=== PATIENT | female | born 2000 | race Caucasian/White ===

== ENCOUNTER 2021-10-07 07:37 | Emergency (ER) | payer OTHER, SELFPAY ==
[2021-10-07 07:39] VITALS: BP 120/80; PULSE 96; RESP 16; TEMP 35.9; O2SAT 100; BMI 22.6
[2021-10-07 07:41] VITALS: BP 120/80; PULSE 96; RESP 16; TEMP 35.9; O2SAT 100
--- NOTE | 2021-10-07 08:01 | EDS_ITS ---
HPI History of Present Illness Chief Complaint: Fever Narrative Narrative: 21-year-old female who denies significant past medical history presents with fever and cough that she has had for the last 10 days. She states that she was [facility] at [facility] after she had had influenza around Thanks time. She was feeling improved, however she developed another fever and cough. She states that the [facility] through telemedicine had written her prescription for an antitussive and an antibiotic to hold till Wednesday because she may have a secondary bacterial infection after influenza. When she went to [employer] the prescriptions, the orders had been canceled. She denies any shortness of breath. No dysuria, no other symptoms. Quite frankly, she comes to the emergency department wanting a prescription for an antitussive and an antibiotic. PFSH PFSH Medical History no medical history Home Medications albuterol sulfate [Ventolin HFA] 1 - 2 puff INHALATION Q4H PRN PRN #1 ea 10/07/21 [Rx Last Taken Unknown] azithromycin [Zithromax Z-Lion] See Rx Instructions PO .COMPLEX #6 tab 10/07/21 [Rx Last Taken Unknown] benzonatate 200 mg PO TID PRN PRN #20 cap 10/07/21 [Rx Last Taken Unknown] norgestimate-ethinyl estradiol [Sprintec (28)] 1 tab PO DAILY 10/07/21 [History Last Taken Unknown] Allergy/AdvReac Type Severity Reaction Status Date / Time No Known Allergies Allergy Verified 10/07/21 07:38 Social History Smoking Status: Never smoker ROS ROS ED ROS Narrative Constitutional: Positive fever, no chills. HEENT: No sore throat. No neck pain. No loss of vision. Positive rhinorrhea. Nasal congestion. Cardiovascular: No chest pain. No palpitations. No pedal edema. Respiratory: Positive cough, no shortness of breath. Abdominal: No abdominal pain. No nausea. No vomiting. Genitourinary: No dysuria. No hematuria. Musculoskeletal: No myalgias. No arthralgias. Neurologic: No headaches. No dizziness. No lightheadedness. Skin: No rash. No change in color. Psychiatric: No depression. No anxiety. EXAM Physical Exam Narrative Exam Narrative: Afebrile. Vital signs noted. Nontoxic-appearing. HEENT: Normocephalic. Atraumatic. PERRL, EOMI. Neck soft and supple. No point tenderness or step off. Noted nasal congestion. Cardiovascular: Regular rate and rhythm. No murmurs, rubs, or gallops appreciated. Respiratory: No tachypnea. Lungs clear to auscultation bilaterally. No wheezing. Gastrointestinal: Abdomen soft, nontender, with normoactive bowel sounds. No rebound or guarding. Neurological: Awake. Alert. Nonfocal, nonlateralizing. Skin: No rash. Normal color. No pallor. Musculoskeletal: No pedal edema. Full range of motion extremities. Const Vital Signs: 10/07/21 07:39 10/07/21 07:41 10/07/21 07:46 Temperature 96.7 F L 96.7 F L Temperature Source Temporal Temporal Pulse Rate 96 96 Respiratory Rate 16 16 Respiratory Effort Normal Blood Pressure 120/80 120/80 Blood Pressure Mean 93 93 Pulse Ox 100 100 Oxygen Delivery Method Room Air Room Air MDM MDM MDM Narrative Medical decision making narrative: Pulse ox is 100% on room air without evidence of hypoxia. I had discussed the chest x-ray with the patient, however, it is a radiation exposure that I do not feel that she would need because treatment will be the same. I will write her for an azithromycin Z-Lion that she should hold until Wednesday as planned. She was also given a prescription for an albuterol inhaler and Tessalon. She states that she was tested for Covid on Wednesday, 4 days ago, and it was negative. At this point in time, I feel she be discharged safely home with follow-up. Return instructions to the emergency department were reviewed. Disposition is discharged home in stable condition. Discharge Plan Triage Chief Complaint: Fever ED Provider: Jaswinder Hernandez Dx/Rx/DC Orders Clinical Impression: Cough, URI (upper respiratory infection) Instructions: ED Upper Resp Infec Abx Tx Prescriptions: New albuterol sulfate [Ventolin HFA] 90 mcg/actuation HFA aerosol inhaler 1 - 2 puff inhalation Q4H PRN PRN (Reason: Wheezing) Qty: 1 RF: 0 azithromycin [Zithromax Z-Lion] 250 mg tablet See Rx Instructions PO .COMPLEX Qty: 6 RF: 0 benzonatate 100 mg capsule 200 mg PO TID PRN PRN (Reason: Cough) Qty: 20 RF: 0 No Action norgestimate-ethinyl estradiol [Sprintec (28)] 0.25-35 mg-mcg Tablet 1 tab PO DAILY RF: 0 Primary Care Provider: NOT,DEFINED Referrals: Sharonda Owen DO [STAFF PHYSICIAN] - 10/14/21 NOT,DEFINED [Primary Care Provider] - Disposition Disposition: Home, Self Care
== END 2021-10-07 09:18 | disposition home or self-care (01) ==
LOC: ED 08:37
PROVIDERS: Emergency Provider Emergency Medicine; PCP Pediatrics
DX: J06.9 Acute upper respiratory infection, unspecified (principal); Z79.899 Other long term (current) drug therapy
CPT/HCPCS: 99282

== ENCOUNTER 2022-07-18 10:51 | Emergency (ER) | payer OTHER, SELFPAY ==
[2022-07-18 10:52] VITALS: BP 148/98; PULSE 112; RESP 16; TEMP 36.6; O2SAT 99; BMI 22.6
--- NOTE | 2022-07-18 11:23 | CT_ITS ---
STUDY: CTA HEAD AND NECK WITH CONTRAST REASON FOR EXAM: Female, 21 years old. anis[facility]oria RADIATION DOSAGE (If Supplied By Facility): CTDIvol = ( 27.54 ) mGy, DLP = ( 1396.20 ) mGycm TECHNIQUE: CT angiography was performed with a multi-detector CT scanner. Data acquisition was obtained from the skull base through the vertex following intravenous administration of IV 100mL Isovue-370. MIP images were reconstructed from the axial data set. Post-processing of the angiographic images was performed, with multiplanar reformation and 3D reconstruction. Individualized dose optimization techniques were used for this CT. COMPARISON: No relevant priors. FINDINGS: Normal bilateral petrous carotid arteries. Normal right cavernous carotid artery with a normal supraclinoid bifurcation. Normal left cavernous carotid artery with a normal supraclinoid bifurcation. Normal right A1 segments of the anterior cerebral artery. Normal left A1 segments of the anterior cerebral artery. Normal intact anterior communicating artery (ACOM). Normal bilateral A2 segments of the anterior cerebral arteries. Normal right M1 and M2 segments of the middle cerebral arteries, with a normal M1 bifurcation. Normal left M1 and M2 segments of the middle cerebral arteries, with a normal M1 bifurcation. Normal right posterior communicating artery (PCOM). Normal left posterior communicating artery (PCOM). Normal bilateral vertebral arteries. Normal basilar artery with a normal basilar bifurcation. The visualized bilateral superior cerebellar (SCA) arteries are normal. Normal bilateral P1, P2 and visualized P3 segments of the posterior cerebral arteries. There is no demonstrated aneurysm of the [place]. There is no demonstrated abnormality of the visualized brain. AORTIC ARCH: Normal visualized aortic arch. Normal origins of the brachiocephalic, left common carotid, and left subclavian arteries. RIGHT CAROTID ARTERIES: Normal right common carotid artery (CCA). Normal right common carotid bulb. Normal origin of the right internal carotid (ICA) artery without a hemodynamically significant stenosis. Normal visualized cervical portion of the right internal carotid artery. Normal origin of the right external carotid artery (ECA). LEFT CAROTID ARTERIES: Normal left common carotid artery (CCA). Normal left common carotid bulb. Normal origin of the left internal carotid (ICA) artery without a hemodynamically significant stenosis. Normal visualized cervical portion of the left internal carotid artery. Normal origin of the left external carotid artery (ECA). VERTEBRAL ARTERIES: Normal bilateral vertebral arteries. CT/CTA Head AND Neck W/ Contrast IMPRESSION: 1. Normal [place] without a demonstrated aneurysm or hemodynamically significant stenosis. 2. Normal bilateral cervical carotid and vertebral arteries. Electronically Signed: Roly Coyle MD at 12:42 EDT ,
[2022-07-18 11:51] LABS: Absolute Lymphocyte Count 1.61 X10^3/uL (0.83-4.51); Absolute Neutrophil Count 3.6 X10^3/uL (2.0-7.7); Basophil# 0.02 X10^3/uL; Basophil% 0.4 % (0-1); Eosinophil# 0.01 X10^3/uL; Eosinophils% 0.2 % (0-5); Hematocrit 39.1 % (37-47); Hemoglobin 13.1 g/dL (12.0-15.0); Lymphocyte # 1.61 X10^3/ul (0.83-4.51); Mean Corp Hgb Conc 33.5 g/dL (32-36); Mean Corpuscular Hgb 30.5 pg (27.0-32.0); Mean Corpuscular Volume 90.9 fL (81-99); Mean Platelet Vol. 10.3 fl (6.2-12.0); Monocyte# 0.28 X10^3/uL; NRBC Flagged by Analyzer 0 % (0-5); Neutrophil # 3.63 X10^3/uL (2.7-7.7); Neutrophil % 65.2 % (47-70); Platelet Count 232 K/mm3 (150-450); RBC Distribution Width CV 12.6 % (11.6-14.6); RBC Distribution Width SD 41.4 fl (35.1-43.9); White Blood Count 5.6 K/mm3 (4.4-11.0)
[2022-07-18 12:00] LABS: Anion Gap 7 (5-15); BUN 13 mg/dL (7-18); BUN/Creat Ratio 12.3 RATIO (10-20); Chloride 110 mmol/L (98-107); Creatinine, Serum 1.06 mg/dL (0.55-1.02); EST Glomerular Filtration Rate 70 mL/min (>60); Est Glom Filt Rate - Afr Amer 84 mL/min (>60); Estimated Creatinine Clearance 79.25 ml/min; Glucose 93 mg/dL (74-106); Sodium Level 142 mmol/L (136-145)
--- NOTE | 2022-07-18 12:56 | EX.ED.VIS.EY ---
HPI History of Present Illness Chief Complaint: Eye Problem Narrative Narrative: 21-year-old female presenting with dilated left pupil. She states it has not been painful. She was well last night and did not notice it. It was noticed this morning when somebody saw her. She does not have any tearing of the eye. No redness in the eye. No visual discrepancies. She states that she noted in the elevator with her friend that her pupils become more equal. When she gets into the light the left one is larger. The patient states that she does not take any medications except for occasionally which has not been used. She is also taking control which has been unchanged. She does not have a headache, dizziness, lightheadedness, nausea. She denies any trauma to the eye or her head. PFSH PFSH Medical History no medical history Home Medications albuterol sulfate 90 mcg/actuation aerosol inhaler (Ventolin HFA) 1 - 2 puff inhalation Q4H PRN PRN Wheezing #1 ea 10/07/21 [Rx Last Taken Unknown] norgestimate 0.25 mg-ethinyl estradiol 35 mcg tablet (Sprintec (28)) 1 tab PO DAILY 10/07/21 [History Last Taken Unknown] Allergy/AdvReac Type Severity Reaction Status Date / Time No Known Allergies Allergy Verified 07/18/22 11:01 Surgical History no surgical history Social History Smoking Status: Never smoker ROS ROS ED Constitutional Constitutional ED: Denies chills or fever(s) Eyes Eyes: Reports other Details: Enlarged left pupil ; Denies change in vision or diplopia ENT ENT ED: Denies rhinorrhea or sore throat Cardiovascular Cardiovascular: Denies chest pain or palpitations Respiratory/Chest Respiratory/Chest: Denies cough or dyspnea Gastrointestinal Gastrointestinal: Denies abdominal pain or constipation Genitourinary Genitourinary ED: Denies dysuria or hematuria Musculoskeletal Musculoskeletal: Denies arthralgias Integumentary Denies abscess or Abrasions Neurologic Neurologic: Denies headache(s) or paresthesias Psychiatric Psychiatric: Denies anxiety EXAM Physical Exam Const Vital Signs: 07/18/22 10:52 Temperature 97.8 F Temperature Source Temporal Pulse Rate 112 H Respiratory Rate 16 Blood Pressure 148/98 H Blood Pressure Mean 114 Pulse Ox 99 Oxygen Delivery Method Room Air Positive well nourished General Appearance ED: NAD HEENT atraumatic Eyes EOMs intact bilaterally, conjunctivae normal, no scleral icterus, no papilledema, normal visual moss by confrontation and fundi normal bilaterally General Eye ED: Negative for exophthalmos or proptosis Visual Acuity: acuity normal Visual Field: No peripheral vision loss and No central vision loss Alignment: alignment normal Periorbital: periorbital findings normal Eyelid: eyelids normal Conjunctiva: conjunctiva normal Sclera: sclera normal Cornea: cornea normal Pupil: pupil size - right, pupil size - left Left Pupil Size: 5 ft and other Other Details: Left pupil 5 mm, right pupil 3 mm. Each pupil reactive to light. Neck no lymphadenopathy Resp normal respiratory effort Cardio regular rate and regular rhythm Neuro oriented x3, CN's II-XII intact bilaterally, moves all extremities and no sensory deficits noted Sensorium / Orientation: alert Motor Exam: strength 5/5 throughout Skin no wounds MDM MDM MDM Narrative Medical decision making narrative: I spoke with Dr. Hickman who is on-call for ophthalmology. He recommended a CTA of the brain to prove that she does not have any posterior circulation aneurysms. CTA of the head and neck was performed and is negative. Patient counseled on findings. He will follow-up with him on an outpatient basis. I did give him her contact information and he was going to try to set this up as an outpatient follow-up. She is given contact information as well. Patient stable for discharge. Impression: 1. An[facility] Lab Data Attestation: I reviewed the patient's lab results. Labs: Laboratory Results - last 24 hr 07/18/22 07/18/22 11:40 11:40 WBC 5.6 RBC 4.30 Hgb 13.1 Hct 39.1 MCV 90.9 MCH 30.5 MCHC 33.5 RDW Std Deviation 41.4 RDW Coeff of [place] 12.6 Plt Count 232 MPV 10.3 Immature Gran % (Auto) 0.200 Neut % (Auto) 65.2 Lymph % (Auto) 29.0 [place] % (Auto) 5.0 Eos % (Auto) 0.2 Baso % (Auto) 0.4 Absolute Neuts (auto) 3.6 Absolute Lymphs (auto) 1.61 Nucleated RBC % 0 Sodium 142 Potassium 4.0 Chloride 110 H Carbon Dioxide 25.0 Anion Gap 7 BUN 13 Creatinine 1.06 H Estim Creat Clear Calc 79.25 Est GFR (MDRD) Af Amer 84 Est GFR (MDRD) Non-Af 70 BUN/Creatinine Ratio 12.3 Glucose 93 Calcium 9.0 Radiography Diagnostic Testing: Clinical Impression(s) from Imaging Studies Head/Neck CTA 07/18/22 11:23 IMPRESSION: 1. Normal [place] without a demonstrated aneurysm or hemodynamically significant stenosis. 2. Normal bilateral cervical carotid and vertebral arteries. Electronically Signed: Roly Coyle MD at 12:42 EDT Reading Location ID and State: [facility] / [place] , Service support , Discharge Plan Triage Chief Complaint: Eye Problem ED Provider: Tomy Samson Dx/Rx/DC Orders Clinical Impression: Anisocoria Prescriptions: No Action norgestimate-ethinyl estradiol [Sprintec (28)] 0.25-35 mg-mcg Tablet 1 tab PO DAILY albuterol sulfate [Ventolin HFA] 90 mcg/actuation HFA aerosol inhaler 1 - 2 puff inhalation Q4H PRN PRN (Reason: Wheezing) Qty: 1 0RF Primary Care Provider: [facility] Doctor,Out of Referrals: Serg Schultz MD [Med Staff - Active Staff] - As soon as possible [facility] Doctor,Out of [Primary Care Provider] - Disposition Disposition: Home, Self Care
--- NOTE | 2022-07-18 13:02 | EX.ED.VIS.EY ---
HPI History of Present Illness Chief Complaint: Eye Problem [facility] Medical History no medical history Home Medications albuterol sulfate 90 mcg/actuation aerosol inhaler (Ventolin HFA) 1 - 2 puff inhalation Q4H PRN PRN Wheezing #1 ea 10/07/21 [Rx Last Taken Unknown] norgestimate 0.25 mg-ethinyl estradiol 35 mcg tablet (Sprintec (28)) 1 tab PO DAILY 10/07/21 [History Last Taken Unknown] Allergy/AdvReac Type Severity Reaction Status Date / Time No Known Allergies Allergy Verified 07/18/22 11:01 Surgical History no surgical history Social History Smoking Status: Never smoker EXAM Physical Exam Const Vital Signs: 07/18/22 10:52 Temperature 97.8 F Temperature Source Temporal Pulse Rate 112 H Respiratory Rate 16 Blood Pressure 148/98 H Blood Pressure Mean 114 Pulse Ox 99 Oxygen Delivery Method Room Air MDM MDM MDM Narrative Medical decision making narrative: Patient seen and evaluated. His rito. I spoke with Dr. Shellie AMADO Lab Data Labs: Laboratory Results - last 24 hr 07/18/22 07/18/22 11:40 11:40 WBC 5.6 RBC 4.30 Hgb 13.1 Hct 39.1 MCV 90.9 MCH 30.5 MCHC 33.5 RDW Std Deviation 41.4 RDW Coeff of [place] 12.6 Plt Count 232 MPV 10.3 Immature Gran % (Auto) 0.200 Neut % (Auto) 65.2 Lymph % (Auto) 29.0 [place] % (Auto) 5.0 Eos % (Auto) 0.2 Baso % (Auto) 0.4 Absolute Neuts (auto) 3.6 Absolute Lymphs (auto) 1.61 Nucleated RBC % 0 Sodium 142 Potassium 4.0 Chloride 110 H Carbon Dioxide 25.0 Anion Gap 7 BUN 13 Creatinine 1.06 H Estim Creat Clear Calc 79.25 Est GFR (MDRD) Af Amer 84 Est GFR (MDRD) Non-Af 70 BUN/Creatinine Ratio 12.3 Glucose 93 Calcium 9.0 Radiography Diagnostic Testing: Clinical Impression(s) from Imaging Studies Head/Neck CTA 07/18/22 11:23 IMPRESSION: 1. Normal [place] without a demonstrated aneurysm or hemodynamically significant stenosis. 2. Normal bilateral cervical carotid and vertebral arteries. Electronically Signed: Roly Coyle MD at 12:42 EDT , Discharge Plan Triage Chief Complaint: Eye Problem ED Provider: Tomy Samson Dx/Rx/DC Orders Clinical Impression: Anisocoria Prescriptions: No Action norgestimate-ethinyl estradiol [Sprintec (28)] 0.25-35 mg-mcg Tablet 1 tab PO DAILY albuterol sulfate [Ventolin HFA] 90 mcg/actuation HFA aerosol inhaler 1 - 2 puff inhalation Q4H PRN PRN (Reason: Wheezing) Qty: 1 0RF Primary Care Provider: Cecilio Polk,Out of Referrals: Serg Schultz MD [Med Staff - Active Staff] - As soon as possible Cecilio Polk,Out of [Primary Care Provider] - Disposition Disposition: Home, Self Care Discharge Date/Time: 07/18/22 13:15
== END 2022-07-18 13:15 | disposition home or self-care (01) ==
PROVIDERS: Emergency Provider Student in an Organized Health Care Education/Training Program; Visit Provider Student in an Organized Health Care Education/Training Program
DX: H57.02 Anisocoria (principal); H57.04 Mydriasis
CPT/HCPCS: 70496; 70498; 80048; 85025; 99284; Q9967; A4216